=== PATIENT | male | born 1965 | race Caucasian/White ===

== ENCOUNTER 2021-12-25 12:59 | Emergency (ER) | payer MEDICARE, MEDICAID ==
[~2021-12-25] VITALS: Ht 180.3 cm; Wt 92.3 kg
[2021-12-25 13:10] VITALS: BP 131/82
[2021-12-25] MEDS ORDERED: ALBUTEROL SULFATE 5 MG/ML 20 ML NEB SOLN [BULK] NEB ONE (14:15)
[2021-12-26] MEDS ORDERED: FLUT1BLS3 (10:44)
[2021-12-26] MEDS ORDERED: PRED-554 PO (10:46)
== END 2021-12-25 16:01 | disposition home or self-care (01) ==
LOC: EMS 12:59
DX: J44.9 Chronic obstructive pulmonary disease, unspecified (principal); Z76.0 Encounter for issue of repeat prescription; F12.10 Cannabis abuse, uncomplicated
CPT/HCPCS: 94640; 94644; 99283; 99285

== ENCOUNTER 2021-12-26 08:38 | Emergency (ER) | payer MEDICARE, MEDICAID ==
[~2021-12-26] VITALS: Ht 180.3 cm; Wt 92.3 kg
[2021-12-26] MEDS ORDERED: IPRATROPIUM BROMIDE 0.5 MG/2.5 ML NEB SOLUTION NEB ONE (10:00)
[2021-12-26] MEDS ORDERED: ALBUTEROL SULFATE 2.5 MG/0.5 ML NEB SOLUTION NEB ONE (10:00)
[2021-12-26] MEDS ORDERED: FLUT1BLS3 (10:44)
[2021-12-26] MEDS ORDERED: PRED-554 PO (10:46)
[2021-12-26] MEDS ORDERED: ALBUTEROL SULFATE HFA 90 MCG/PUFF 8 GM INHALER IH ONE (11:00)
[2021-12-26 11:05] VITALS: BP 152/104
== END 2021-12-26 12:03 | disposition home or self-care (01) ==
LOC: EMS 08:38
DX: J44.1 Chronic obstructive pulmonary disease with (acute) exacerbation (principal); F12.90 Cannabis use, unspecified, uncomplicated; Z79.899 Other long term (current) drug therapy
CPT/HCPCS: 71045; 94640; 99284; J3535; J7613